=== PATIENT | female | born 1975 | race Caucasian/White ===

== ENCOUNTER 2016-07-22 12:49 | Emergency (ER) | payer OTHER ==
[2016-06-25 16:30] VITALS: Ht 162.6 cm; Wt 61.2 kg
[~2016-07-22] VITALS: Ht 162.6 cm; Wt 61.2 kg
[~2016-07-22 12:49] MED LIST: MESA500C PO; PRED10TA PO
[2016-07-22 13:04] VITALS: BP 124/74; PULSE 118; RESP 18; TEMP 97.4; O2SAT 99
--- NOTE | 2016-07-22 13:15 | NUR ---
Patient triaged and placed in waiting room. VSS and patient appears in no acute distress at this time. Accompanied by friend, awaiting available bed, and MD notified of need for MSE.
--- NOTE | 2016-07-22 14:14 | NUR ---
Dr. Chisholm at the bedside evaluating the patient.
--- NOTE | 2016-07-22 14:14 | NUR ---
Patient to ER bed to [facility] for evaluation. Side rails up. Report given to Davon. Addendum: 07/22/16 at 1432 by [facility] Report to Juvencio
[2016-07-22 15:10] VITALS: BP 122/76; PULSE 98; RESP 18; TEMP 97.4; O2SAT 99
--- NOTE | 2016-07-22 15:32 | NUR ---
Patient given written and verbal discharge instructions and verbalizes understanding. Dr. Chisholm discussed with patient the results and treatment provided. Given copies of tests performed in ER. Patient in stable condition. ID arm band removed. IV catheter removed intact and dressing applied, no active bleeding. Rx of Keflex given. Patient educated on pain management and to follow up with PMD. Pain Scale 0/10. Opportunity for questions provided and answered.
== END 2016-07-22 15:10 | disposition home or self-care (01) ==
LOC: SED 12:49
DX: L05.91 Pilonidal cyst without abscess (principal); K50.90 Crohn's disease, unspecified, without complications
CPT/HCPCS: 99283

== ENCOUNTER 2016-10-14 00:46 | Inpatient (IN) | payer OTHER ==
[2016-06-25 16:30] VITALS: Ht 162.6 cm; Wt 57.2 kg
[2016-10-14] VITALS (8 sets, daily range): BP systolic 98–119; BP diastolic 60–74; PULSE 75–138; RESP 16–22; TEMP 98–100.1; O2SAT 96–99
[~2016-10-14] VITALS: Ht 162.6 cm; Wt 57.2 kg
[2016-10-14] MEDS ORDERED: NACL 0.9% 1,000 ML IV ONE (02:01)
[2016-10-14 02:12] LABS: BILIRUBIN,URINE NEGATIVE (NEGATIVE); BLOOD, URINE 1+ (NEGATIVE); CLARITY/URINE CLEAR (CLEAR); COLOR,URINE YELLOW (YELLOW); GLUCOSE,URINE NEGATIVE (NEGATIVE); KETONES,URINE NEGATIVE (NEGATIVE); LEUKOCYTE ESTERASE ,URINE 2+ (NEGATIVE); NITRITE, URINE NEGATIVE (NEGATIVE); PH,URINE 7.5 (5.0-8.0); PROTEIN URINE TRACE (NEGATIVE); UROBILINOGEN,URINE 0.2 (0.2-1.0)
[2016-10-14] MEDS ORDERED: MORPHINE 2 MG/ML INJ. SYRINGE IVP ONE (02:15)
[2016-10-14] MEDS ORDERED: DIPHENHYDRAMINE INJ 50 MG/ML VIAL IVP ONE ×2 (02:15→06:15)
[2016-10-14 02:30] LABS: BACTERIA,URINE FEW /HPF (None Seen); RBC,URINE 0-3 /HPF (0-3)
[2016-10-14 02:31] LABS: MUCUS,URINE 1+ /LPF (None Seen)
[2016-10-14 02:38] LABS: BASOPHILS % (AUTO) 0.3 % (0.0-2.0); EOSINOPHILS # (AUTO) 0.2 K/uL (0.0-0.4); EOSINOPHILS % (AUTO) 2.7 % (0.0-4.0); HEMATOCRIT 27.4 % (36-48); HEMOGLOBIN 8.7 g/dL (12.0-16.0); LYMPHOCYTES # (AUTO) 1.4 K/uL (1.0-5.5); LYMPHOCYTES % (AUTO) 19.6 % (20.5-51.5); MEAN CORPUSCULAR HEMOGLOBIN 25 pg (27-31); MEAN CORPUSCULAR HGB CONC 32 % (32-36); MEAN CORPUSCULAR VOLUME 79 fL (79.0-98.0); MONOCYTES # (AUTO) 0.9 K/uL (0.0-1.0); MONOCYTES % (AUTO) 12.2 % (1.7-9.3); NEUTROPHILS # (AUTO) 4.9 K/uL (1.8-7.7); NEUTROPHILS % (AUTO) 65.2 % (40.0-70.0); PLATELET COUNT (AUTO) 453 K/uL (130-430); RED BLOOD CELL COUNT(AUTO) 3.48 MIL/uL (4.2-6.2); RED CELL DISTRIBUTION WIDTH 15.7 % (9.0-15.0); WHITE BLOOD COUNT (AUTO) 7.4 K/uL (4.8-10.8)
[2016-10-14 02:56] LABS: CREATININE 0.75 mg/dL (0.55-1.30); POTASSIUM 3.6 mmol/L (3.5-5.1)
[2016-10-14 03:01] LABS: ALBUMIN 1.6 g/dL (3.4-4.8); TOTAL BILIRUBIN 0.2 mg/dL (0.0-1.0); TOTAL PROTEIN, SERUM 7.3 g/dL (6.4-8.3)
[2016-10-14 03:29] LABS: BARBITURATE, URINE NEGATIVE (NEG <=200); BENZODIAZEPINE, URINE NEGATIVE (NEG <=150); CANNABINOID, URINE NEGATIVE (NEG <=50); COCAINE, URINE NEGATIVE (NEG <=150); METHAMPHETAMINES SCREEN,URINE NEGATIVE (NEG <=500); OPIATE, URINE NEGATIVE (NEG <=100); PHENCYCLIDINE SCREEN,URINE NEGATIVE (NEG <=25); UR TRICYCLIC ANTIDEPRESSANTS NEGATIVE (NEG <=300); URINE AMPHETAMINE NEGATIVE (NEG <=500); URINE METHADONE NEGATIVE (NEG <=200); URINE OXYCODONE SCREEN NEGATIVE (NEG <=100); URINE PROPOXYPHENE SCREEN NEGATIVE (NEG <=300)
[2016-10-14] MEDS ORDERED: cefTRIAXone 1 GM IVPB PREMIX 50 ML IV ONE (04:30)
[2016-10-14] MEDS ORDERED: ACETAMINOPHEN 325 MG TABLET ONE (05:31)
[2016-10-14] MEDS ORDERED: MORPHINE 4 MG/ML INJ. SYRINGE IVP ONE (06:15)
[2016-10-14] MEDS ORDERED: MORPHINE 2 MG/ML INJ. SYRINGE IVP PRN (07:45)
[2016-10-14] MEDS ORDERED: ONDANSETRON HCL 4 MG/2 ML VIAL IVP PRN ×2 (07:45→13:30)
[2016-10-14] MEDS: metroNIDAZOLE 500 mg/NS 100 ML IV SCH ×3 (08:51→21:22)
[2016-10-14] MEDS: KCL 20 mEq in NS 1000 mL 1,000 ML IV SCH ×2 (08:51→21:22)
[2016-10-14] MEDS: MORPHINE 2 MG/ML INJ. SYRINGE IVP PRN ×3 (09:06→20:24)
[2016-10-14] MEDS: LEVOFLOXACIN 500 MG/D5W 100 ML IV SCH (10:14)
[2016-10-14] MEDS ORDERED: ACETAMINOPHEN 325 MG TABLET PO PRN (13:00)
[2016-10-14] MEDS ORDERED: IPRATROPIUM/ALBUTEROL SULFATE 3 ML AMPUL.NEB INH PRN (13:30)
[2016-10-14] MEDS ORDERED: PANTOPRAZOLE SODIUM 40 MG TAB PO ONE (13:30)
[2016-10-14] MEDS ORDERED: guaiFENesin 200 MG/10 ML UDC PO PRN (13:30)
[2016-10-15 00:16] VITALS: BP 100/57; PULSE 112; RESP 18; TEMP 97.4; O2SAT 98
[2016-10-15 05:06] VITALS: BP 128/68; PULSE 125; RESP 21; TEMP 98.1; O2SAT 97
[2016-10-15] MEDS: metroNIDAZOLE 500 mg/NS 100 ML IV SCH ×3 (05:22→22:30)
[2016-10-15 07:06] LABS: BASOPHILS % (AUTO) 0.5 % (0.0-2.0); EOSINOPHILS # (AUTO) 0.2 K/uL (0.0-0.4); EOSINOPHILS % (AUTO) 3.2 % (0.0-4.0); HEMATOCRIT 23.3 % (36-48); HEMOGLOBIN 7.5 g/dL (12.0-16.0); LYMPHOCYTES # (AUTO) 0.9 K/uL (1.0-5.5); LYMPHOCYTES % (AUTO) 18.7 % (20.5-51.5); MEAN CORPUSCULAR HEMOGLOBIN 26 pg (27-31); MEAN CORPUSCULAR HGB CONC 32 % (32-36); MEAN CORPUSCULAR VOLUME 80 fL (79.0-98.0); MONOCYTES # (AUTO) 0.7 K/uL (0.0-1.0); MONOCYTES % (AUTO) 14.5 % (1.7-9.3); NEUTROPHILS # (AUTO) 3.1 K/uL (1.8-7.7); NEUTROPHILS % (AUTO) 63.1 % (40.0-70.0); PLATELET COUNT (AUTO) 369 K/uL (130-430); RED BLOOD CELL COUNT(AUTO) 2.89 MIL/uL (4.2-6.2); RED CELL DISTRIBUTION WIDTH 15.9 % (9.0-15.0); WHITE BLOOD COUNT (AUTO) 4.9 K/uL (4.8-10.8)
[2016-10-15 07:21] LABS: ALBUMIN 1.3 g/dL (3.4-4.8); CREATININE 0.95 mg/dL (0.55-1.30); POTASSIUM 3.9 mmol/L (3.5-5.1); TOTAL BILIRUBIN 2.5 mg/dL (0.0-1.0); TOTAL PROTEIN, SERUM 6.8 g/dL (6.4-8.3)
[2016-10-15 08:00] VITALS: BP 96/59; PULSE 103; RESP 20; TEMP 98; O2SAT 96
[2016-10-15 09:18] LABS: CALCIUM 8.2 mg/dL (8.4-11.0)
[2016-10-15] MEDS: PANTOPRAZOLE SODIUM 40 MG TAB PO SCH (09:26)
[2016-10-15] MEDS: KCL 20 mEq in NS 1000 mL 1,000 ML IV SCH ×2 (09:26→21:05)
[2016-10-15] MEDS: LEVOFLOXACIN 500 MG/D5W 100 ML IV SCH (09:28)
[2016-10-15 12:18] VITALS: BP 135/70; PULSE 100; RESP 16; TEMP 98.3; O2SAT 94
[2016-10-15 16:42] VITALS: BP 110/67; PULSE 107; RESP 18; TEMP 97.7; O2SAT 100
[2016-10-15 19:49] VITALS: BP 94/51; PULSE 104; RESP 18; TEMP 98.1; O2SAT 99
[2016-10-15] MEDS: CEFEPIME 1 GM in D5W 50 ML IV SCH (21:05)
[2016-10-15] MEDS: guaiFENesin 200 MG/10 ML UDC PO SCH (22:37)
[2016-10-16 00:46] VITALS: BP 98/58; PULSE 102; RESP 18; TEMP 98.4; O2SAT 99
[2016-10-16] MEDS: MORPHINE 2 MG/ML INJ. SYRINGE IVP PRN (04:44)
[2016-10-16 04:50] VITALS: BP 101/84; PULSE 100; RESP 18; TEMP 98.4; O2SAT 97
[2016-10-16] MEDS: KCL 20 mEq in NS 1000 mL 1,000 ML IV SCH ×2 (05:52→18:51)
[2016-10-16] MEDS: metroNIDAZOLE 500 mg/NS 100 ML IV SCH ×3 (05:53→22:00)
[2016-10-16 06:53] LABS: BASOPHILS % (AUTO) 0.4 % (0.0-2.0); EOSINOPHILS # (AUTO) 0.2 K/uL (0.0-0.4); EOSINOPHILS % (AUTO) 4.9 % (0.0-4.0); HEMATOCRIT 27.4 % (36-48); HEMOGLOBIN 8.7 g/dL (12.0-16.0); LYMPHOCYTES % (AUTO) 23.3 % (20.5-51.5); MEAN CORPUSCULAR HEMOGLOBIN 26 pg (27-31); MEAN CORPUSCULAR HGB CONC 32 % (32-36); MEAN CORPUSCULAR VOLUME 83 fL (79.0-98.0); MONOCYTES # (AUTO) 0.5 K/uL (0.0-1.0); MONOCYTES % (AUTO) 11.6 % (1.7-9.3); NEUTROPHILS # (AUTO) 2.7 K/uL (1.8-7.7); NEUTROPHILS % (AUTO) 59.8 % (40.0-70.0); PLATELET COUNT (AUTO) 364 K/uL (130-430); RED BLOOD CELL COUNT(AUTO) 3.31 MIL/uL (4.2-6.2); RED CELL DISTRIBUTION WIDTH 15.3 % (9.0-15.0); WHITE BLOOD COUNT (AUTO) 4.4 K/uL (4.8-10.8)
[2016-10-16 07:21] LABS: ALBUMIN 1.3 g/dL (3.4-4.8); CREATININE 0.63 mg/dL (0.55-1.30); POTASSIUM 3.5 mmol/L (3.5-5.1); TOTAL BILIRUBIN 0.2 mg/dL (0.0-1.0); TOTAL PROTEIN, SERUM 6.1 g/dL (6.4-8.3)
[2016-10-16] MEDS: guaiFENesin 200 MG/10 ML UDC PO SCH ×3 (09:00→21:53)
[2016-10-16] MEDS: PANTOPRAZOLE SODIUM 40 MG TAB PO SCH (09:07)
[2016-10-16] MEDS: CEFEPIME 1 GM in D5W 50 ML IV SCH ×2 (09:24→21:53)
[2016-10-16 12:07] VITALS: BP 93/66; PULSE 91; RESP 15; TEMP 97.6; O2SAT 99
[2016-10-16 16:54] VITALS: BP 117/72; PULSE 103; RESP 15; TEMP 98; O2SAT 99
[2016-10-16] MEDS: IPRATROPIUM/ALBUTEROL SULFATE 3 ML AMPUL.NEB INH SCH ×3 (17:38→23:00)
[2016-10-16] MEDS: BENZOCAINE/MENTHOL 1 EACH LOZENGE MM PRN ×2 (18:29→21:53)
[2016-10-16 20:10] VITALS: BP 107/57; PULSE 112; RESP 18; TEMP 97.8; O2SAT 98
[2016-10-17 00:50] VITALS: BP 101/68; PULSE 19; RESP 19; TEMP 98.7; O2SAT 95
[2016-10-17 04:19] VITALS: BP 106/63; PULSE 92; RESP 17; TEMP 98; O2SAT 21
[2016-10-17] MEDS: KCL 20 mEq in NS 1000 mL 1,000 ML IV SCH (05:05)
[2016-10-17] MEDS: metroNIDAZOLE 500 mg/NS 100 ML IV SCH (05:06)
[2016-10-17 07:25] LABS: BASOPHILS % (AUTO) 0.4 % (0.0-2.0); EOSINOPHILS # (AUTO) 0.2 K/uL (0.0-0.4); EOSINOPHILS % (AUTO) 5.7 % (0.0-4.0); HEMATOCRIT 27.4 % (36-48); HEMOGLOBIN 8.8 g/dL (12.0-16.0); MEAN CORPUSCULAR HEMOGLOBIN 27 pg (27-31); MEAN CORPUSCULAR HGB CONC 32 % (32-36); MEAN CORPUSCULAR VOLUME 83 fL (79.0-98.0); MONOCYTES # (AUTO) 0.5 K/uL (0.0-1.0); MONOCYTES % (AUTO) 12.2 % (1.7-9.3); NEUTROPHILS % (AUTO) 53.7 % (40.0-70.0); PLATELET COUNT (AUTO) 387 K/uL (130-430); RED BLOOD CELL COUNT(AUTO) 3.28 MIL/uL (4.2-6.2); WHITE BLOOD COUNT (AUTO) 3.7 K/uL (4.8-10.8)
[2016-10-17 07:29] VITALS: PULSE 92
[2016-10-17] MEDS: IPRATROPIUM/ALBUTEROL SULFATE 3 ML AMPUL.NEB INH SCH (07:29)
[2016-10-17 07:32] LABS: CALCIUM 8.2 mg/dL (8.4-11.0); CREATININE 0.63 mg/dL (0.55-1.30); POTASSIUM 3.5 mmol/L (3.5-5.1)
[2016-10-17] MEDS: PANTOPRAZOLE SODIUM 40 MG TAB PO SCH (08:22)
[2016-10-17] MEDS: guaiFENesin 200 MG/10 ML UDC PO SCH (08:22)
[2016-10-17 08:25] VITALS: BP 111/58; PULSE 94; RESP 16; TEMP 98; O2SAT 98
[2016-10-17] MEDS: CEFEPIME 1 GM in D5W 50 ML IV SCH (08:39)
[2016-10-17 12:16] VITALS: BP 123/72; PULSE 94; RESP 16; TEMP 97.9; O2SAT 100
[2016-10-17 12:25] VITALS: BP 107/64; PULSE 91; RESP 18; TEMP 98.1; O2SAT 98
== END 2016-10-17 13:20 | disposition home or self-care (01) | DRG 871 ==
LOC: SED 00:46 → STU 05:49 → SMU 10-16 10:08
PROVIDERS: ADMIT Internal Medicine; ATTEND Internal Medicine
PROC: 30233N1 Transfusion of Nonautologous Red Blood Cells into Peripheral Vein, Percutaneous Approach (ICD-10-PCS; principal; 2016-10-15)
DX: A41.9 Sepsis, unspecified organism (principal); E43 Unspecified severe protein-calorie malnutrition; K50.90 Crohn's disease, unspecified, without complications; N39.0 Urinary tract infection, site not specified; A04.9 Bacterial intestinal infection, unspecified; J20.9 Acute bronchitis, unspecified; D64.9 Anemia, unspecified; Z68.21 Body mass index [BMI] 21.0-21.9, adult
CPT/HCPCS: 36415; 80048; 80053; 80307; 81000-TC; 83605; 83735-TC; 85025; 85651-TC; 86886; 86900; 86901; 86920; 87040-TC; 87045-TC; 87046; 87086; 87177; 87230-TC; 89055; 93005; 94640; 94760; 96361; 96374; 96375; 99285; J0692; J0696; J1200; J1956; J2270; J2405; J3480; J3490; J7030; J7050; J7060; P9021

== ENCOUNTER 2016-10-23 04:54 | Emergency (ER) | payer OTHER ==
[~2016-10-23] VITALS: Ht 162.6 cm; Wt 54.4 kg
[~2016-10-23 04:54] MED LIST changes: -PRED10TA PO
[2016-10-23 05:00] VITALS: BP_SYST 129
[2016-10-23] MEDS ORDERED: KETOROLAC TROMETHAMINE 60 MG/2 ML VIAL IM ONE (05:30)
[2016-10-23 06:14] VITALS: BP_SYST 122
== END 2016-10-23 06:14 | disposition home or self-care (01) ==
LOC: SED 04:54
DX: M25.532 Pain in left wrist (principal); R03.0 Elevated blood-pressure reading, without diagnosis of hypertension; R21 Rash and other nonspecific skin eruption
CPT/HCPCS: 29125; 73110; 96372; 99284; J1885

== ENCOUNTER 2018-07-31 00:16 | Emergency (ER) | payer OTHER ==
[~2018-07-31] VITALS: Ht 162.6 cm; Wt 68.9 kg
[2018-07-31 00:40] VITALS: BP_SYST 127
[2018-07-31] MEDS ORDERED: DIPHENHYDRAMINE INJ 50 MG/ML VIAL IM ONE (01:00)
[2018-07-31] MEDS ORDERED: PROCHLORPERAZINE EDISYLATE 10 MG/2 ML VIAL IM ONE (01:00)
[2018-07-31] MEDS ORDERED: KETOROLAC TROMETHAMINE 60 MG/2 ML VIAL IM ONE (01:30)
[2018-07-31 02:00] VITALS: BP_SYST 120
== END 2018-07-31 02:00 | disposition home or self-care (01) ==
LOC: SED 00:16
DX: G44.209 Tension-type headache, unspecified, not intractable (principal); R03.0 Elevated blood-pressure reading, without diagnosis of hypertension
CPT/HCPCS: 96372; 99283; J0780; J1200; J1885

== ENCOUNTER 2024-02-09 11:52 | Inpatient (IN) | payer MEDICAID, OTHER ==
[~2024-02-09] VITALS: Ht 162.6 cm; Wt 72.6 kg
[2024-02-09 12:10] VITALS: BP_SYST 153; PULSE 104; RESP 22; TEMP 98.3; O2SAT 96
[2024-02-09 12:51] LABS: BASOPHILS % (AUTO) 0.2 % (0.0-2.0); EOSINOPHILS % (AUTO) 0.2 % (0.0-4.0); HEMATOCRIT 41.4 % (36-48); LYMPHOCYTES # (AUTO) 0.4 K/uL (1.0-5.5); LYMPHOCYTES % (AUTO) 5.2 % (20.5-51.5); MEAN CORPUSCULAR HEMOGLOBIN 31 pg (27-31); MEAN CORPUSCULAR HGB CONC 34 % (32-36); MEAN CORPUSCULAR VOLUME 91 fL (79.0-98.0); MONOCYTES # (AUTO) 0.3 K/uL (0.0-1.0); MONOCYTES % (AUTO) 4.7 % (1.7-9.3); NEUTROPHILS # (AUTO) 6.4 K/uL (1.8-7.7); NEUTROPHILS % (AUTO) 89.7 % (40.0-70.0); PLATELET COUNT (AUTO) 221 K/uL (130-430); RED BLOOD CELL COUNT(AUTO) 4.57 MIL/uL (4.2-6.2); RED CELL DISTRIBUTION WIDTH 14.7 % (9.0-15.0); WHITE BLOOD COUNT (AUTO) 7.2 K/uL (4.8-10.8)
[2024-02-09] MEDS: MORPHINE 4 MG INJ. 4 MG/ML VIAL IVP ONE (13:08)
[2024-02-09] MEDS: ONDANSETRON HCL 4 MG/2 ML VIAL IVP ONE (13:09)
[2024-02-09 13:13] LABS: ALBUMIN 4.1 g/dL (3.4-4.8); BILIRUBIN,DIRECT 0.1 mg/dL (0.0-0.3); CALCIUM 9.4 mg/dL (8.4-11.0); CREATININE 0.79 mg/dL (0.55-1.30); POTASSIUM 3.9 mmol/L (3.5-5.1); TOTAL BILIRUBIN 0.3 mg/dL (0.0-1.0); TOTAL PROTEIN, SERUM 8.6 g/dL (6.4-8.3)
[2024-02-09 13:19] LABS: SERUM HCG (QUALITATIVE) NEGATIVE (NEGATIVE)
[2024-02-09 15:30] LABS: BILIRUBIN,URINE NEGATIVE (NEGATIVE); CLARITY/URINE CLEAR (CLEAR); COLOR,URINE YELLOW (YELLOW); GLUCOSE,URINE NEGATIVE (NEGATIVE); KETONES,URINE NEGATIVE (NEGATIVE); LEUKOCYTE ESTERASE ,URINE NEGATIVE (NEGATIVE); NITRITE, URINE NEGATIVE (NEGATIVE); PROTEIN URINE NEGATIVE (NEGATIVE); UROBILINOGEN,URINE 0.2 (0.2-1.0)
[2024-02-09 15:42] LABS: BLOOD, URINE TRACE (NEGATIVE)
[2024-02-09 15:56] LABS: BACTERIA,URINE RARE /HPF (None Seen)
[2024-02-09] MEDS: MORPHINE 2 MG/ML INJ. SYRINGE IVP ONE (18:34)
[2024-02-09] MEDS: metroNIDAZOLE 500 mg/NS 100 ML IV ONE (18:41)
[2024-02-09] MEDS ORDERED: HYDROcodone/ACETAMIN 5-325 MG TAB (NORCO/ VICODIN) PO PRN (18:45)
[2024-02-09] MEDS ORDERED: MORPHINE 2 MG/ML INJ. SYRINGE IVP PRN (18:45)
[2024-02-09] MEDS ORDERED: hydrALAZINE HCL 25 MG TABLET PO PRN (20:15)
[2024-02-09] MEDS ORDERED: ZOLPIDEM TARTRATE 5 MG TABLET PO PRN (20:30)
[2024-02-09] MEDS ORDERED: AZAT50TA24 PO (21:45)
[2024-02-09 21:58] VITALS: BP_SYST 129; PULSE 81; RESP 20; TEMP 97.4
[2024-02-09] MEDS: NACL 0.9% 1,000 ML IV SCH (22:00)
[2024-02-09] MEDS: MESALAMINE 400 MG CAPSULE.DR PO SCH (22:00)
[2024-02-09 22:10] VITALS: O2SAT 95
[2024-02-10] VITALS: BP_SYST 124; PULSE 72; RESP 16; TEMP 97.8; O2SAT 97
[2024-02-10 06:49] LABS: BASOPHILS % (AUTO) 0.2 % (0.0-2.0); EOSINOPHILS # (AUTO) 0.1 K/uL (0.0-0.4); EOSINOPHILS % (AUTO) 1.2 % (0.0-4.0); HEMATOCRIT 37.8 % (36-48); HEMOGLOBIN 12.5 g/dL (12.0-16.0); LYMPHOCYTES # (AUTO) 0.7 K/uL (1.0-5.5); LYMPHOCYTES % (AUTO) 13.5 % (20.5-51.5); MEAN CORPUSCULAR HEMOGLOBIN 30 pg (27-31); MEAN CORPUSCULAR HGB CONC 33 % (32-36); MEAN CORPUSCULAR VOLUME 91 fL (79.0-98.0); MONOCYTES # (AUTO) 0.4 K/uL (0.0-1.0); MONOCYTES % (AUTO) 8.9 % (1.7-9.3); NEUTROPHILS # (AUTO) 3.9 K/uL (1.8-7.7); NEUTROPHILS % (AUTO) 76.2 % (40.0-70.0); PLATELET COUNT (AUTO) 219 K/uL (130-430); RED BLOOD CELL COUNT(AUTO) 4.14 MIL/uL (4.2-6.2); RED CELL DISTRIBUTION WIDTH 14.5 % (9.0-15.0); WHITE BLOOD COUNT (AUTO) 5.1 K/uL (4.8-10.8)
[2024-02-10 06:54] LABS: INR 1.1 (0.8-1.2); PROTHROMBIN TIME 11.1 SECS (9.5-12.5)
[2024-02-10 07:06] LABS: ALBUMIN 3.4 g/dL (3.4-4.8); CALCIUM 8.9 mg/dL (8.4-11.0); CREATININE 0.68 mg/dL (0.55-1.30); POTASSIUM 4.1 mmol/L (3.5-5.1); TOTAL BILIRUBIN 0.5 mg/dL (0.0-1.0)
[2024-02-10 07:42] LABS: ERYTHROCYTE SEDIMENTATION RATE 23 MM/HR (0-20)
[2024-02-10 07:51] VITALS: BP_SYST 145; PULSE 80; RESP 16; TEMP 97.6; O2SAT 100
[2024-02-10 11:07] LABS: TOTAL IRON BIND. CAPACITY 330 ug/dL (250-450)
[2024-02-10 11:19] VITALS: BP_SYST 142; PULSE 84; RESP 16; TEMP 97.6; O2SAT 99
[2024-02-10] MEDS ORDERED: GOLYTELY / COLYTE SOLUTION 4 LITERS PO ONE (11:30)
[2024-02-10] MEDS: MINERAL OIL 133 ML ENEMA RC ONE (12:15)
[2024-02-10] MEDS: azaTHIOprine 50 MG TABLET PO ONE (12:15)
[2024-02-10] MEDS: POLYETHYLENE GLYCOL 3350, 17 GM/ POWD.PACK PO ONE (12:16)
[2024-02-10 15:29] VITALS: BP_SYST 134; PULSE 77; RESP 16; TEMP 97.3; O2SAT 100
[2024-02-10] MEDS: POLYETHYLENE GLYCOL 3350, 17 GM/ POWD.PACK PO SCH ×2 (17:07→20:04)
[2024-02-10 20:00] VITALS: BP_SYST 142; PULSE 90; RESP 16; TEMP 97; O2SAT 100
[2024-02-10] MEDS: ONDANSETRON HCL 4 MG/2 ML VIAL IVP PRN (20:04)
[2024-02-10] MEDS: azaTHIOprine 50 MG TABLET PO SCH (20:27)
[2024-02-11] VITALS: BP_SYST 141; PULSE 82; RESP 16; TEMP 98.8; O2SAT 98
[2024-02-11] MEDS ORDERED: amLODIPine BESYLATE 5 MG TABLET PO ONE (06:00)
[2024-02-11] MEDS: fentaNYL CITRATE/PF 100 MCG/2 ML AMP ONE (07:09)
[2024-02-11] MEDS: MIDAZOLAM HCL 5 MG/5 ML VIAL ONE (07:10)
[2024-02-11] MEDS: SIMETHICONE 40 MG/0.6 ML ML ONE (07:11)
[2024-02-11 08:00] VITALS: BP_SYST 115; PULSE 75; RESP 15; TEMP 98.2; O2SAT 99
[2024-02-11] MEDS ORDERED: LEVO-62 PO (08:43)
[2024-02-11] MEDS ORDERED: METR-154 PO (08:43)
[2024-02-11 08:45] VITALS: O2SAT 99
[2024-02-11 08:58] LABS: EOSINOPHILS # (AUTO) 0.1 K/uL (0.0-0.4); HEMATOCRIT 34.5 % (36-48); LYMPHOCYTES # (AUTO) 0.6 K/uL (1.0-5.5); MEAN CORPUSCULAR HEMOGLOBIN 31 pg (27-31); MONOCYTES # (AUTO) 0.3 K/uL (0.0-1.0); NEUTROPHILS # (AUTO) 3.2 K/uL (1.8-7.7); WHITE BLOOD COUNT (AUTO) 4.3 K/uL (4.8-10.8)
[2024-02-11 09:01] LABS: BASOPHILS % (AUTO) 0.4 % (0.0-2.0); EOSINOPHILS % (AUTO) 2.3 % (0.0-4.0); HEMOGLOBIN 11.6 g/dL (12.0-16.0); LYMPHOCYTES % (AUTO) 14.7 % (20.5-51.5); MEAN CORPUSCULAR HGB CONC 34 % (32-36); MEAN CORPUSCULAR VOLUME 91 fL (79.0-98.0); MONOCYTES % (AUTO) 7.7 % (1.7-9.3); NEUTROPHILS % (AUTO) 74.9 % (40.0-70.0); PLATELET COUNT (AUTO) 201 K/uL (130-430); RED BLOOD CELL COUNT(AUTO) 3.78 MIL/uL (4.2-6.2); RED CELL DISTRIBUTION WIDTH 14.4 % (9.0-15.0)
[2024-02-11] MEDS ORDERED: PRED10TA PO (09:43)
[2024-02-11 09:47] LABS: ALBUMIN 3.3 g/dL (3.4-4.8); CALCIUM 8.7 mg/dL (8.4-11.0); CREATININE 0.66 mg/dL (0.55-1.30); POTASSIUM 3.6 mmol/L (3.5-5.1); TOTAL BILIRUBIN 0.5 mg/dL (0.0-1.0)
[2024-02-11] MEDS ORDERED: METH-776 PO (09:51)
[2024-02-11 12:00] VITALS: BP_SYST 138; PULSE 98; RESP 16; TEMP 98.2; O2SAT 98
[2024-02-11] MEDS: metroNIDAZOLE 500 mg/NS 100 ML IV SCH (14:22)
[2024-02-11] MEDS: methylPREDNISolone SOD SUCC/PF 62.5 MG/ML VIAL IVP SCH (14:23)
[2024-02-11 15:38] VITALS: BP_SYST 137; PULSE 75; RESP 16; TEMP 97.8; O2SAT 98
[2024-02-11 16:00] VITALS: BP_SYST 137; PULSE 75; RESP 18; TEMP 97.8; O2SAT 98
[2024-02-15 01:06] LABS: HEPATITIS B CORE AB, TOTAL Negative (Negative); HEPATITIS B SURFACE AG Negative (Negative); HEPATITIS C VIRUS AB Non Reactive (Non Reactive)
== END 2024-02-11 16:20 | disposition home or self-care (01) | DRG 245 ==
LOC: SED 11:52 → SMU 18:45
PROVIDERS: ADMIT Internal Medicine; ATTEND Internal Medicine
PROC: 0DBL8ZX Excision of Transverse Colon, Via Natural or Artificial Opening Endoscopic, Diagnostic (ICD-10-PCS; 2024-02-11)
PROC: 0DBG8ZX Excision of Left Large Intestine, Via Natural or Artificial Opening Endoscopic, Diagnostic (ICD-10-PCS; 2024-02-11)
PROC: 0DBF8ZX Excision of Right Large Intestine, Via Natural or Artificial Opening Endoscopic, Diagnostic (ICD-10-PCS; principal; 2024-02-11 07:30)
DX: K50.918 Crohn's disease, unspecified, with other complication (principal); E44.1 Mild protein-calorie malnutrition; K50.90 Crohn's disease, unspecified, without complications; R74.01 Elevation of levels of liver transaminase levels; R03.0 Elevated blood-pressure reading, without diagnosis of hypertension; Z88.8 Allergy status to other drugs, medicaments and biological substances; Z79.899 Other long term (current) drug therapy; Z68.27 Body mass index [BMI] 27.0-27.9, adult
CPT/HCPCS: 36415; 45380; 76705; 80048; 80053; 80076; 81000; 81001; 81015; 83540; 83550; 83690; 84703; 85025; 85610; 85651; 86704; 86706; 86708; 86803; 87340; 88305; 96365; 99285; J1956; J2250; J2270; J2405; J2930; J3010; J3490; J7500